=== PATIENT | female | born 1945 | race Caucasian/White ===

== ENCOUNTER 2021-08-08 12:12 | Emergency (ER) | payer OTHER ==
[~2021-08-08] VITALS: Ht 157.5 cm; Wt 56.4 kg
[2021-08-08 12:14] VITALS: BP 165/104
--- NOTE | 2021-08-08 12:18 | NUR ---
PT TO ER BED WITH CANE ASSISTANCE.
--- NOTE | 2021-08-08 12:20 | NUR ---
BIB FAMILY C/O URINARY BURNING SENSATION , BODY ACHE X YESTERDAY. LAST BM 5 DAYS AGO.PMH: RIGHT KNEE REPLACEMENT 7 YEARS AGO. DENIES N/V/D; SKIN IS PINK/WARM/DRY; AAOX4.PT AMB WITH CANE. PATIENT STATES PAIN OF 7/10 AT THIS TIME; VSS; PATIENT POSITIONED FOR COMFORT; HOB ELEVATED; BEDRAILS UP X1; BED DOWN. ER MD MADE AWARE OF PT STATUS.
--- NOTE | 2021-08-08 13:54 | NUR ---
DR. GRAHAM AT OT BEDSIDE FOR FURTHER EVALUATION.
--- NOTE | 2021-08-08 14:05 | NUR ---
PT AMBULATED TO RESTROOM WITH CANE ASSISTANCE.
[2021-08-08] MEDS ORDERED: IBUP-2213 PO (14:09)
[2021-08-08] MEDS ORDERED: CIPR500T4 PO (14:09)
[2021-08-08] MEDS: KETOROLAC 60 MG/2 ML VIAL IM ONE (14:29)
[2021-08-08 14:46] VITALS: BP 144/86
--- NOTE | 2021-08-08 14:46 | NUR ---
Patient discharged with v/s stable. Written and verbal after care instructions given UTI AND MUSCULOSKELTAL PAINand explained. Patient alert, oriented and verbalized understanding of instructions. Ambulatory with steady gait. All questions addressed prior to discharge. ID band removed. Patient advised to follow up with PMD. Rx of IBUPROFEN AND CIPRO given. Patient educated on indication of medication including possible reaction and side effects. Opportunity to ask questions provided and answered.
== END 2021-08-08 14:46 | disposition home or self-care (01) ==
LOC: MED 12:12
DX: N39.0 Urinary tract infection, site not specified (principal); M79.651 Pain in right thigh; M79.652 Pain in left thigh; E11.9 Type 2 diabetes mellitus without complications; I10 Essential (primary) hypertension; Z98.890 Other specified postprocedural states
CPT/HCPCS: 81025; 87086; 96360; 99285; J1885